=== PATIENT | female | born 1985 | race Caucasian/White ===

== ENCOUNTER 2023-07-23 13:10 | Emergency (ER) | payer BC, SELFPAY ==
[2023-07-23] MEDS ORDERED: Ondansetron PF 4 MG/2 ML Vial ONE (15:02)
[2023-07-23] MEDS ORDERED: Morphine 4 MG/ML VIAL ONE (15:02)
[2023-07-23 15:06] LABS: #Basophils 0.1 thou/uL (0.0-0.2); #Eosinphils 0.1 thou/uL (0.0-0.7); #Monocytes 0.5 thou/uL (0.11-0.59); #Neutrophils 6.6 thou/uL (1.40-6.50); %Basophils 0.6 % (0.0-1.0); %Eosinophils 1.3 % (0.0-10.0); %Lymphocytes 28.1 % (21.0-51.0); %Monocytes 5.2 % (0.0-10.0); %Neutrophils 64.6 % (42.0-75.0); Mean Corpuscular HGB CONC 34.1 g/dL (32.0-36.0); Mean Corpuscular Hemoglobin 32.3 pg (27.0-31.0); Mean Corpuscular Volume 94.6 fl (78.0-98.0); Mean Platelet Volume 8.6 fL (7.4-10.4); Platelet Count 359 10x3/uL (130-400); Red Blood Cell (RBC) Count 4.65 mill/uL (4.20-5.40); White Blood Cell (WBC) Count 10.2 10x3/uL (4.8-10.8)
[2023-07-23 15:10] LABS: Pregnancy Test - Urine (BHCG) Negative (Negative); Pregu Control Background? CLEAR/WHITE (CLR/WHITE); Pregu Control Bar Appear? YES (CONTROL BAR); Specific Gravity 1.029 (1.002-1.036)
[2023-07-23 15:30] LABS: ALT (SGPT) 16 U/L (8-55); AST (SGOT) 15 U/L (5-34); Albumin 4.6 g/dL (3.5-5.0); Alkaline Phosphatase 51 U/L (40-110); Anion Gap 13 mmol/L (10-20); BUN (Urea Nitrogen) 15 mg/dL (7.0-18.7); Bilirubin, Total 0.5 mg/dL (0.2-1.2); Calc. Creatinine Clearance 0 mL/min (70-130); Calcium 9.5 mg/dL (7.8-10.44); Carbon Dioxide 27 mmol/L (22-29); Chloride 101 mmol/L (98-107); Estimated GFR 104; Globulin 2.9 g/dL (2.4-3.5); Glucose 88 mg/dL (70-105); Lipase 57 U/L (8-78); Potassium 3.7 mmol/L (3.5-5.1); Protein, Total 7.5 g/dL (6.0-8.3); Sodium 137 mmol/L (136-145)
[2023-07-23 16:01] LABS: Bilirubin Negative (Negative); Blood, Urine Negative (Negative); CAUTI Indications for Culture Pelvic or flank pain; Clarity Turbid (Clear); Glucose, Urine (Dipstick) Normal (Negative); Ketone, Urine 20 mg/dL (Negative); Leukocyte Negative Leu/uL (Negative); Nitrite Negative (Negative); Protein, Urine (Dipstick) 30 mg/dL (Neg-Trace); RBC/HPF 0-3 HPF (0-3); Specific Gravity, Urine 1.033 (1.002-1.036); Urobilinogen Normal mg/dL (Less than 2); WBC/HPF 0-3 HPF (0-3); pH, Urine 5.5 (5.0-9.0)
[2023-07-23 16:02] LABS: Bacteria/HPF 1+ HPF (None Seen); Urine Culture Reflex No No
[2023-07-23] MEDS ORDERED: Ketorolac Tromethamine 30 MG (1 mL) VIAL ONE (16:08)
== END 2023-07-23 17:50 | disposition home or self-care (01) ==
LOC: ERS 13:10
DX: R10.9 Unspecified abdominal pain (principal); F17.210 Nicotine dependence, cigarettes, uncomplicated
CPT/HCPCS: 74177; 76856; 80053; 81001; 81025; 83690; 85025; 96374; 96375; J1885; J2270; J2405

== ENCOUNTER 2025-04-12 13:56 | Emergency (ER) | payer BC, SELFPAY | END 2025-04-12 15:40 | disposition home or self-care (01) | LOC: ERS 13:56 | DX: S60.032A Contusion of left middle finger without damage to nail, initial encounter (principal); M79.642 Pain in left hand; F17.210 Nicotine dependence, cigarettes, uncomplicated; Z79.899 Other long term (current) drug therapy; W01.0XXA Fall on same level from slipping, tripping and stumbling without subsequent striking against object, initial encounter | CPT/HCPCS: 99283 ==